=== PATIENT | female | born 1955 | race Hispanic/Latino ===

== ENCOUNTER 2021-05-31 03:44 | Inpatient (IN) | payer BC, OTHER ==
[2021-05-31] VITALS (8 sets, daily range): BP systolic 91–116; BP diastolic 57–73
[~2021-05-31] VITALS: Ht 165.1 cm; Wt 90.7 kg
[2021-05-31] MEDS ORDERED: KETOROLAC TROMETHAMINE 60 MG/2 ML VIAL IM ONE (04:00)
[2021-05-31] MEDS ORDERED: KETOROLAC TROMETHAMINE 60 MG/2 ML VIAL ONE (04:01)
[2021-05-31 04:09] LABS: CLARITY,URINE SL CLOUDY (CLEAR); COLOR,URINE YELLOW (YELLOW); KETONES,URINE NEGATIVE (NEGATIVE); LEUKOCYTE ESTERASE ,URINE NEGATIVE (NEGATIVE); NITRITE,URINE NEGATIVE (NEGATIVE); PROTEIN,URINE DIPSTICK 1+ (NEGATIVE); URINE UROBILINOGEN 0.2 mg/dL (0.2 - 1)
[2021-05-31 04:21] LABS: BACTERIA,URINE MODERATE /HPF; EPITHELIAL CELLS,URINE FEW /LPF; MUCUS,URINE MANY (RARE); WBC,URINE (MAN) >50 /HPF (0-5)
[2021-05-31] MEDS ORDERED: ACETAMINOPHEN 325 MG TAB PO PRN (05:00)
[2021-05-31] MEDS ORDERED: Morphine 4mg Syringe 4 MG/ML INJ IV PRN (05:00)
[2021-05-31] MEDS: CEFTRIAXONE 1 GM in SODIUM CHLORIDE 0.9% 50ML 50 ML IV SCH (05:03)
[2021-05-31] MEDS: SODIUM CHLORIDE 0.9% 1000ML 1,000 ML IV SCH ×2 (05:06→13:45)
[2021-05-31] MEDS ORDERED: CEFTRIAXONE 1 GM VIAL ONE (05:09)
[2021-05-31 05:35] LABS: BASOPHILS # (AUTO) 0.1 (0.0-0.1); BASOPHILS % 0.5 % (0.0-1.0); EOSINOPHILS % 0.2 % (0.0-6.0); HEMATOCRIT 48.2 % (34.2-44.1); HEMOGLOBIN 16.1 g/dL (12.0-16.0); LYMPHOCYTES # (AUTO) 1.9 (1.0-3.2); MEAN CORPUSCULAR HEMOGLOBIN 29.7 pg (28-32); MEAN CORPUSCULAR HGB CONC 33.4 g/dL (31-35); MEAN CORPUSCULAR VOLUME 88.9 fL (81-99); MONOCYTES # (AUTO) 0.7 (0.2-0.8); MONOCYTES % 5.4 % (4.4-11.3); NEUTROPHILS # (AUTO) 9.4 (2.1-6.9); NEUTROPHILS % 77.6 % (38.7-80.0); PLATELET COUNT 225 x10e3/uL (140-360); RED BLOOD COUNT 5.42 x10e6/uL (3.6-5.1); RED CELL DISTRIBUTION WIDTH 13.1 % (11.7-14.4)
[2021-05-31 06:16] LABS: ALBUMIN/GLOBULIN RATIO 1.3 (0.8-2.0); ANION GAP 14.9 mmol/L (8-16); CALCIUM 9.4 mg/dL (8.4-10.2); POTASSIUM 3.9 mmol/L (3.5-5.1)
[2021-05-31 06:38] LABS: CREATININE, SERUM 0.81 mg/dL (0.57-1.11)
[2021-05-31] MEDS: NICOTINE 7 MG PATCH TOP SCH (14:57)
[2021-05-31] MEDS ORDERED: NICOTINE 21 MG/EA PATCH TOP SCH (19:15)
[2021-05-31] MEDS ORDERED: HEPARIN SOD (PORCINE) 5,000 UNIT/ML VIAL SC ONE (20:30)
[2021-06-01] MEDS: SODIUM CHLORIDE 0.9% 1000ML 1,000 ML IV SCH (01:18)
[2021-06-01 04:56] VITALS: BP 97/60
[2021-06-01 06:04] LABS: BASOPHILS % 0.5 % (0.0-1.0); EOSINOPHILS # (AUTO) 0.2 (0.0-0.4); HEMATOCRIT 42.2 % (34.2-44.1); HEMOGLOBIN 14.2 g/dL (12.0-16.0); LYMPHOCYTES # (AUTO) 3.1 (1.0-3.2); LYMPHOCYTES % 38.5 % (18.0-39.1); MEAN CORPUSCULAR HEMOGLOBIN 29.8 pg (28-32); MEAN CORPUSCULAR HGB CONC 33.6 g/dL (31-35); MEAN CORPUSCULAR VOLUME 88.5 fL (81-99); MONOCYTES # (AUTO) 0.7 (0.2-0.8); MONOCYTES % 9.1 % (4.4-11.3); NEUTROPHILS % 49.7 % (38.7-80.0); PLATELET COUNT 210 x10e3/uL (140-360); RED BLOOD COUNT 4.77 x10e6/uL (3.6-5.1); RED CELL DISTRIBUTION WIDTH 13.2 % (11.7-14.4)
[2021-06-01 06:41] LABS: CALCIUM 8.6 mg/dL (8.4-10.2); CREATININE, SERUM 0.73 mg/dL (0.57-1.11)
[2021-06-01 07:57] VITALS: BP 103/78
[2021-06-01 08:24] VITALS: BP 103/78
[2021-06-01] MEDS ORDERED: TAMSULOSIN HCL 0.4 MG CAP PO ONE (09:00)
[2021-06-01] MEDS ORDERED: PROTONIX20 MG PO (09:01)
[2021-06-01] MEDS ORDERED: LEVOCETIRIZINE D5 MG PO (09:04)
[2021-06-01] MEDS ORDERED: ATORVASTATIN CA20 MG PO (09:04)
[2021-06-01] MEDS ORDERED: LEXAPRO5 MG PO (09:04)
[2021-06-01] MEDS ORDERED: VESICARE5 MG PO (09:04)
[2021-06-01] MEDS ORDERED: LEVOTHYROXINE88 MCG PO (09:04)
[2021-06-01] MEDS ORDERED: DICYCLOMINE HCL10 MG PO (09:04)
[2021-06-01] MEDS: CEFTRIAXONE 1 GM in SODIUM CHLORIDE 0.9% 50ML 50 ML IV SCH (09:09)
[2021-06-01] MEDS: NICOTINE 7 MG PATCH TOP SCH (09:10)
[2021-06-01] MEDS: ONDANSETRON HCL INJ 2MG/ML 2ML 2 MG/ML VIAL IV PRN ×2 (09:10→13:11)
[2021-06-01 11:33] VITALS: BP 107/56
[2021-06-01] MEDS ORDERED: ACETAMINOPHEN-1 EAC4 PO (12:28)
[2021-06-01] MEDS ORDERED: CIPRO500 MG PO (12:28)
[2021-06-01] MEDS ORDERED: FLOMAX0.4 MG PO (12:29)
[2021-06-02] MEDS ORDERED: LEVOFLOXACIN250 MG PO (17:49)
== END 2021-06-01 14:02 | disposition home or self-care (01) | DRG 694 ==
LOC: ER 04:00 → ERHOLD 04:58 → MED/SURG3 06:37
PROVIDERS: ADMIT Internal Medicine; ATTEND Internal Medicine
DX: N13.2 Hydronephrosis with renal and ureteral calculous obstruction (principal); F17.210 Nicotine dependence, cigarettes, uncomplicated; Z87.442 Personal history of urinary calculi; Z71.6 Tobacco abuse counseling; Z20.822 Contact with and (suspected) exposure to COVID-19
CPT/HCPCS: 36415; 74018; 74176; 80048; 80053; 81001; 85025; 87040; 87086; 94799; 99284; J0696; J1644; J1885; J2270; J2405; J7030; U0002